=== PATIENT | male | born 1970 | race Caucasian/White ===

== ENCOUNTER 2018-11-02 09:09 | Day surgery (SDC) | payer OTHER ==
[~2018-11-02 09:09] MED LIST: PROTONIX20 MG PO
[2018-11-02] MEDS ORDERED: PERCOCET 5-3251 EACH PO (16:49)
[2018-11-02] MEDS ORDERED: POLY119PG PO (16:49)
[2018-11-02] MEDS ORDERED: SURFAK240 M1 PO (16:50)
== END 2018-11-02 18:55 | disposition home or self-care (01) ==
LOC: CIR.AMB 09:09
DX: K81.1 Chronic cholecystitis (principal); K42.9 Umbilical hernia without obstruction or gangrene